=== PATIENT | female | born 1970 | race Caucasian/White ===

== ENCOUNTER 2016-07-01 07:23 | Day surgery (SDC) | payer OTHER ==
[2016-07-01] VITALS (16 sets, daily range): BP systolic 114–162; BP diastolic 66–104; PULSE 72–81; RESP 10–18; Ht 165.1 cm; Wt 118.0 kg
[~2016-07-01] VITALS: Ht 165.1 cm; Wt 118.0 kg
[~2016-07-01 07:23] MED LIST: CLINDAMYCIN 600 MG/D5W (PMX) 50 ML IVPB ONE; SOD CHLORIDE 0.9% 1,000 ML IV SCH
[2016-07-01] MEDS ORDERED: FLUO20CA22 PO (08:15)
[2016-07-01] MEDS ORDERED: BUPIVACAINE 0.5% (SDV) 30 ML INJ ONE (08:30)
[2016-07-01] MEDS ORDERED: LIDOCAINE 2% (MDV) 20 ML INJ ONE (08:30)
[2016-07-01] MEDS ORDERED: CEFAZOLIN 1 GM INJ ONE (08:44)
[2016-07-01] MEDS ORDERED: MIDAZOLAM 1 MG/ML 2 ML INJ ONE ×2 (08:46→08:47)
[2016-07-01] MEDS ORDERED: KETOROLAC 30 MG INJ ONE (08:48)
[2016-07-01] MEDS ORDERED: HYDROCODONE/APAP (5/325) TAB PO ONE (09:30)
--- NOTE | 2016-07-01 10:17 | OPR ---
DATE OF OPERATION: 07/01/2016 INDICATION: This is a 46-year-old female with a back and chest mass. She requests surgical excision . The risks, alternatives, benefits, and personnel were discussed with the patient. Patient expres sed understanding and consented to the operation. PREOPERATIVE DIAGNOSIS: Back mass and chest mass. POSTOPERATIVE DIAGNOSIS: Back masses chest mass. OPERATION PERFORMED: 1. Back mass excision with a 6-cm size incision and a 6 x 2-cm size lesion. 2. Chest mass excision with a 3-cm size incision of 3 x 1-cm size lesion. 3. Localized adjacent tissue transfer with the use of skin flaps. SURGEON: Lance Benedict MD SPECIMEN: Back and chest mass. COMPLICATIONS: None. ANESTHESIA: MAC. PROCEDURE: The patient was taken to the OR, prepped and draped in the usual sterile fashion. Surgi adolfo timeout was performed. IV antibiotics were given. Local anesthesia was injected. An elliptica l incision was made with a 15 blade over the back mass. Dissection cautery was carried down circumf erentially around the mass and excised. Hemostasis was established. Due to the tissue defect, loca lized adjacent tissue transfer with the use of skin flaps was performed. Multilayer closed with int errupted 3-0 Vicryl and skin ursula. The chest mass was addressed in similar fashion with the loca l anesthesia injected and then excision with a 15 blade. Dissection cautery was carried down to the mass and circumferentially excised. Due to the tissue defect, localized adjacent tissue transfer wi th the use of skin flaps was performed. Multilayer closure with interrupted 3-0 Vicryl and running 4-0 Monocryl. Dermabond was applied and dry dressings were applied. Dictated By: LANCE BENEDICT MD SB/NTS Conf#: [id number] DID#: [id number]
== END 2016-07-01 17:42 | disposition home or self-care (01) ==
LOC: SDS 07:23
PROVIDERS: ATTEND Surgery
DX: D17.1 Benign lipomatous neoplasm of skin and subcutaneous tissue of trunk (principal); L72.0 Epidermal cyst; E66.01 Morbid (severe) obesity due to excess calories; Z68.41 Body mass index [BMI] 40.0-44.9, adult
CPT/HCPCS: 14000; 84703; J1885; J2250; J3010; Z7512; Z7610; 88307; J0690